=== PATIENT | male | born 1985 | race Caucasian/White ===

== ENCOUNTER 2019-11-14 11:12 | Emergency (ER) | payer SELFPAY ==
[~2019-11-14] VITALS: Ht 175.3 cm; Wt 82.0 kg
[2019-11-14] MEDS ORDERED: IBUPROFEN 800 MG TAB PO ONE (12:15)
[2019-11-14] MEDS ORDERED: IBUP80TA PO (12:28)
[2019-11-14] MEDS ORDERED: AUGM875T28 PO (12:28)
[2019-11-14 13:02] VITALS: BP 124/64
== END 2019-11-14 13:04 | disposition home or self-care (01) ==
LOC: M ED 11:12
DX: K04.7 Periapical abscess without sinus (principal); K02.9 Dental caries, unspecified

== ENCOUNTER 2019-12-08 17:45 | Emergency (ER) | payer OTHER, SELFPAY ==
[~2019-12-08] VITALS: Ht 175.3 cm; Wt 83.2 kg
[~2019-12-08 17:45] MED LIST: AUGM875T28 PO; IBUP80TA PO
[2019-12-08 17:46] VITALS: BP 139/67
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
[2019-12-08] MEDS ORDERED: CYCL-707 PO (19:48)
== END 2019-12-08 20:09 | disposition home or self-care (01) ==
LOC: M ED 17:45
DX: Z04.1 Encounter for examination and observation following transport accident (principal); F17.290 Nicotine dependence, other tobacco product, uncomplicated

== ENCOUNTER 2020-01-05 11:49 | Emergency (ER) | payer OTHER, SELFPAY ==
[~2020-01-05] VITALS: Ht 175.3 cm; Wt 78.8 kg
[~2020-01-05 11:49] MED LIST changes: +CYCL-707 PO
[2020-01-05] MEDS ORDERED: NS 1,000 ML IV ONE (12:45)
[2020-01-05 13:08] LABS: BASO % 0.4 % (0.0-1.0); EOS # 0.1 10^3/uL (0.0-0.5); EOS % 0.7 % (0.0-3.0); HEMATOCRIT 45.4 % (42.0-52.0); HEMOGLOBIN 15.7 g/dl (13.5-17.5); LYMPH # 0.9 10^3/uL (1.5-5.0); LYMPH % 12.7 % (24.0-44.0); MEAN CORPUSCULAR HEMOGLOBIN 29.5 pg (27.0-33.0); MEAN CORPUSCULAR HGB CONC 34.6 g/dl (32.0-36.5); MEAN CORPUSCULAR VOLUME 85.3 fl (80.0-96.0); MONO # 1.4 10^3/uL (0.0-0.8); MONO % 18.3 % (0.0-5.0); NEUTROPHILS % 67.6 % (36.0-66.0); PLATELET COUNT, AUTOMATED 246 10^3/uL (150-450); RED BLOOD COUNT 5.32 10^6/uL (4.30-6.10); WHITE BLOOD COUNT 7.4 10^3/uL (4.0-10.0)
[2020-01-05] MEDS ORDERED: ISOVUE-370 76% 100ML VIAL As Ordered ONE (13:17)
--- NOTE | 2020-01-05 13:37 | REP ---
INDICATION: n/v/d, R sided abd pain COMPARISON: None. TECHNIQUE: CT Scan of the abdomen and pelvis was performed with intravenous administration of 100 cc of Isovue 370, without oral contrast. FINDINGS: Lung bases: Unremarkable. Liver: Normal Gallbladder: Unremarkable. Spleen: Normal. Adrenals: Normal. Pancreas: Normal. Kidneys: Normal. Small and large bowel: Unremarkable. Free fluid: None. Abdominal aorta: No aneurysm or dissection. Adenopathy: None. Appendix: Not inflamed. Osseous structures: Unremarkable. Pelvis: No mass. IMPRESSION: Negative CT abdomen and pelvis. <Electronically signed by Sundar Fairbanks > 01/05/20 [id number]
[2020-01-05 13:39] LABS: ALBUMIN 4.2 GM/DL (3.2-5.2); ALT/SGPT 41 U/L (12-78); BILIRUBIN,DIRECT < 0.1 MG/DL (0.0-0.2); BILIRUBIN,TOTAL 0.6 MG/DL (0.2-1.0); TOTAL PROTEIN 8.2 GM/DL (6.4-8.2)
[2020-01-05] MEDS ORDERED: POTASSIUM CHLORIDE 10 MEQ SR TABLET PO ONE (14:00)
[2020-01-05] MEDS ORDERED: ONDA4TAB6 PO (14:34)
[2020-01-05 14:43] VITALS: BP 129/74
== END 2020-01-05 14:45 | disposition home or self-care (01) ==
LOC: M ED 11:49
DX: R10.9 Unspecified abdominal pain (principal); R11.2 Nausea with vomiting, unspecified; R19.7 Diarrhea, unspecified
CPT/HCPCS: 74177; 80047; 80076; 85025; 96360; 99284; Q9967